=== PATIENT | female | born 1940 | race Caucasian/White ===

== ENCOUNTER 2018-09-24 18:51 | Inpatient (IN) | payer OTHER ==
--- NOTE | 2018-09-24 19:03 | PDOC ---
Rapid Medical Evaluation Chief Complaint: Redness To Affected Area Time Seen by Provider: 09/24/18 19:00 Medical Evaluation: Allergies Allergy/AdvReac Type Severity Reaction Status Date / Time No Known Allergies Allergy Verified 09/24/18 18:57 09/24/18 19:00 Pt presents to the ED for redness to the R lower leg. Sent by her PCP for IV abx. Exam: erythema to the R lower leg with streaking Orders: Labs, IV insert, x-ray Pt to proceed to the ED for further evaluation Discharge Disposition - Diagnosis Rash - Referrals Referrals: Maryam Watson MD [Primary Care Provider] - - Patient Instructions - Post Discharge Activity
--- NOTE | 2018-09-24 20:28 | PDOC ---
Attending Attestation - HPI HPI: 09/24/18 21:21 The patient is a 77 year old female with a past medical history of HTN and arthritis here today from her PCPs office for IV antibiotics. Patient failed outpatient treatment for cellulitis and was sent in by her PCP for IV antibiotics. Patient reports that her cellulitis started in her left leg but is now in her right leg. Patient denies headache, lightheadedness. Denies fever, chills. Denies chest pain, shortness of breath. Denies nausea, vomiting, diarrhea, abdominal pain. Allergies: NKA PCP: Maryam Watson - Physicial Exam PE: 09/24/18 21:33 Constitutional: Awake, alert, oriented. No acute distress. Head: Normocephalic. Atraumatic Eyes: PERRL. EOMI. Conjunctivae are not pale. ENT: Mucous membranes are moist and intact. Posterior pharynx without exudates or erythema. Uvula midline. Neck: Supple. Full ROM. No lymphadenopathy. Cardiovascular: Regular rate. Regular rhythm. S1, S2 regular. Distal pulses are 2+ and symmetric. Pulmonary/Chest: No evidence of respiratory distress. Clear to auscultation bilaterally No wheezing, rales or rhonchi. Abdominal: Soft and non-distended. There is no tenderness. No rebound, guarding or rigidity. No organomegaly. No palpable masses. Good bowel sounds. Back: No CVA tenderness. Musculoskeletal: + 2+pitting edema in right lower extremity. +right calf tense and palpable indurated area. +pain in back of right lower extremity. No cyanosis. No clubbing. Full range of motion in all extremities. No calf tenderness. No drainage, no fluctuance, no crepitus. Radial/pedal pulses are intact and 2+ bilaterally Skin: Skin is warm and dry. No petechiae. No purpura. Neurological: Alert and oriented to person, place, and time. Cranial nerves II -XII are grossly intact. Normal speech. Strength is grossly symmetric. No sensory deficits. Psychiatric: Good eye contact. Normal interaction, affect and behavior. <Fan Alicea - Last Filed: 09/24/18 21:33> - Resident Resident Name: Larry Zarco - ED Attending Attestation I have performed the following: I have examined & evaluated the patient, The case was reviewed & discussed with the resident, I agree w/resident's findings & plan, Exceptions are as noted - Medical Decision Making 09/24/18 20:28 I, Dr. Dorie Hurd DO, attest that this document has been prepared under my direction and personally reviewed by me in its entirety. I further attest, that it accurately reflects all work, treatment, procedures and medical decision -making performed by me. 09/24/18 21:29 a/p: 77yo female sent in by her PMD for eval of RLE cellulitis that has failed outpt abx -swelling, ttp, redness, warmth to the RLE -has been on keflex for 2 weeks TID -now with worsening pain to the RLE and swelling in the R leg -no cp/sob -hr 97, pulse ox 98%ra -will send labs, cultures, vancomycin -ekg, cxr for admission -duplex u/s to eval for clot -no allergies -will monitor and reassess 09/24/18 22:39 dvt study negative microblog sent to [facility] for cellulitis of the RLE that failed outpt therapy 09/24/18 22:59 case discussed with [facility] who accepts pt to service <Dorie Hurd - Last Filed: 09/24/18 23:00> *DC/Admit/Observation/Transfer <Fan Alicea - Last Filed: 09/24/18 21:33> - Discharge Dispostion Decision to Admit order: Yes <Dorie Hurd - Last Filed: 09/24/18 23:00> Diagnosis at time of Disposition: Rash, Cellulitis - Discharge Dispostion Condition at time of disposition: Fair - Referrals Referrals: Maryam Watson MD [Primary Care Provider] - - Patient Instructions - Post Discharge Activity Heart Score/ECG Review - ECG Intrepretation Comment:: 09/24/18 21:47 sinus at 93, nl axis, nl interval, no acute st/t wave findings <Dorie Hurd - Last Filed: 09/24/18 23:00> Attestations - Attestations 09/24/18 21:21 Documentation prepared by JAYLIN Alva, acting as medical review specialist for Dorie Hurd DO. <Fan Alicea - Last Filed: 09/24/18 21:33>
[2018-09-24 20:30] LABS: BASO % 0.1 % (0-2.0); EOS % 4.5 % (0-4.5); HEMATOCRIT 32.8 % (32.4-45.2); HEMOGLOBIN 10.9 GM/dL (10.7-15.3); LYMPH % 32.2 % (8-40); MCH 28.7 pg (25.7-33.7); MCHC 33.1 g/dl (32.0-36.0); MEAN CELL VOLUME 86.5 fl (80-96); MEAN PLT VOLUME 8.5 fl (7.5-11.1); MONO % 8.1 % (3.8-10.2); NEUT % 55.1 % (42.8-82.8); PLATELET COUNT 221 K/MM3 (134-434); RBC 3.79 M/mm3 (3.60-5.2); RDW 14.3 % (11.6-15.6); WHITE BLOOD COUNT 7.2 K/mm3 (4.0-10.0)
--- NOTE | 2018-09-24 20:37 | PDOC ---
History of Present Illness - General Chief Complaint: Redness To Affected Area Stated Complaint: REF BY DOCTOR Time Seen by Provider: 09/24/18 19:00 History Source: Patient Exam Limitations: Language Barrier - History of Present Illness Initial Comments: 77 yo F w a pmh of HTN and arthritis was sent into the hospital from her PCP - to receive IV Antibiotics for a cellulitis infection. She has been experiencing some skin problems for over 2 weeks now. She saw a doctor and was taking oral antibiotics as outpatient 3 times a day for 14 days ago which have not done anything for her and the red area got worse so she was sent to the hospital to receive IV abx. She took cefazolin as an outpatient but she failed outpatient treatment. Her right leg hurts where it is red. The pain has not been getting worse but it will not go away. Denies having any fevers, chills, chest pain, or SOB for the past few days. PCP: Maryam Santamaria PSH: 55 years ago cataract surgery Allergies: NKA, NKDA Social HX: Denies smoking, drinking, or other substances. Past History - Past Medical History Allergies/Adverse Reactions: Allergies Allergy/AdvReac Type Severity Reaction Status Date / Time No Known Allergies Allergy Verified 09/24/18 18:57 Home Medications: Ambulatory Orders Enalapril Maleate [Vasotec] 20 mg PO BID 09/25/18 Hydrochlorothiazide [Hctz -] 25 mg PO DAILY 09/25/18 COPD: No HTN: Yes Other medical history: arthritis - Suicide/Smoking/Psychosocial Hx Smoking History: Never smoked Review of Systems - Review of Systems Able to Perform ROS?: Yes Comments:: CONSTITUTIONAL: Absent: fever, no chills, no fatigue EYES: Absent: visual changes ENT: Absent: ear pain, no sore throat CARDIOVASCULAR: Absent: chest pain, no palpitations RESPIRATORY: Absent: cough, no SOB GI: Absent: abdominal pain, no nausea, no vomiting, no constipation, no diarrhea GENITOURINARY: Absent: dysuria, no frequency, no hematuria MUSKULOSKELETAL: Present R hip arthralgia - chronic and unchanged in past year Absent: back pain, no myalgia SKIN: Present: rash on right leg NEURO: Absent: headache *Physical Exam - Vital Signs Last Vital Signs Temp Pulse Resp BP Pulse Ox 98.9 F 114 H 18 135/72 96 03/27/19 18:57 09/24/18 18:57 09/24/18 18:57 09/24/18 18:57 09/24/18 18:57 - Physical Exam Comments: GENERAL: Well-appearing, well-nourished. No apparent distress. HEENT: Normocephalic, atraumatic. PERRL, EOM intact. CARDIOVASCULAR: Tachycardic rate. Normal S1, S2. Regular rhythm. PULMONARY: No evidence of respiratory distress. Lungs clear to auscultation bilaterally. No wheezing, rales or rhonchi. ABDOMEN: Soft, non-distended, non-tender. EXTREMITIES: right leg erythema and tenderness to palpation. Borders are not clearly defined. Normal ROM in all four extremities. No gross deformities. SKIN: Warm, dry. No rash NEUROLOGICAL: No focal neurological deficits. ED Treatment Course - LABORATORY CBC & Chemistry Diagram: 09/25/18 06:30 09/25/18 06:30 - ADDITIONAL ORDERS Additional order review: 09/24/18 20:11 RBC 3.79 MCV 86.5 MCHC 33.1 RDW 14.3 MPV 8.5 Neutrophils % 55.1 Lymphocytes % 32.2 Monocytes % 8.1 Eosinophils % 4.5 Basophils % 0.1 Medical Decision Making - Medical Decision Making 77 yo F w a pmh of HTN and arthritis was sent into the hospital from her PCP - to receive IV Antibiotics for a cellulitis infection. She has been experiencing some skin problems for over 2 weeks now. She saw a doctor and was taking oral antibiotics as outpatient 3 times a day for 14 days ago which have not done anything for her and the red area got worse so she was sent to the hospital to receive IV abx. She took cefazolin as an outpatient but she failed outpatient treatment. Her right leg hurts where it is red. The pain has not been getting worse but it will not go away. Denies having any fevers, chills, chest pain, or SOB for the past few days. VS: Tachy Ddx IBNLT: Cellulitis, erysipelas, DVT, PE Plan: Labs, Urine, CXR, EKG, Abx, Admit. *DC/Admit/Observation/Transfer Diagnosis at time of Disposition: Rash, Cellulitis - Discharge Dispostion Condition at time of disposition: Fair - Referrals - Patient Instructions - Post Discharge Activity
[2018-09-24 20:49] LABS: ALBUMIN 3.7 g/dl (3.4-5.0); ALK PHOS 93 U/L (45-117); ANION GAP 10 MMOL/L (8-16); BILIRUBIN,TOTAL 0.3 mg/dL (0.2-1); BLOOD UREA NITROGEN 35 mg/dL (7-18); CHLORIDE 103 mmol/L (98-107); CO2 25 mmol/L (21-32); GLUCOSE,RANDOM 109 mg/dL (74-106); POTASSIUM 3.8 mmol/L (3.5-5.1); SGOT/AST 12 U/L (15-37); SGPT/ALT 21 U/L (13-61); SODIUM 137 mmol/L (136-145); TOT PROT 7.6 g/dl (6.4-8.2)
[2018-09-24] MEDS ORDERED: SODIUM CHLORIDE 0.9% 500 ML INFUS.BAG IV ONE (21:16)
[2018-09-24] MEDS ORDERED: VANCOMYCIN 1,000 MG in DEXTROSE 5%-WATER - 250 ML IVPB ONE (21:16)
[2018-09-24] MEDS ORDERED: VANCOMYCIN 1 GRAM (PRE-DOCKED) 1,000 MG/250 ML BAG IVPB ONE (21:25)
--- NOTE | 2018-09-24 23:02 | PN ---
Teaching Attending Note Name of Resident: Terrence Moura ATTENDING PHYSICIAN STATEMENT I saw and evaluated the patient. I reviewed the resident's note and discussed the case with the resident. I agree with the resident's findings and plan as documented. SUBJECTIVE: Patient is a 77 year old woman with PMH of HTN and arthritis was sent into the hospital from her PCP - to receive IV Antibiotics for cellulitis of RLE. She has been experiencing some skin problems for over 2 weeks now. She saw a doctor and was taking Keflex 3 times a day for 14 days ago which have not done anything for her and the red area got worse. Her right leg hurts where it is red. The pain has not been getting worse but it will not go away. Has had chronic persistent RLE rash for months. Was evaluated by both a vein doctor and a dish room worker and has been using a steroid cream for months. Denies having any fevers, chills, chest pain, headache, dizziness, abdominal pain, change in bowel habit, vomiting, nausea, dysuria or SOB. OBJECTIVE: Alert Vital Signs Period Temp Pulse Resp BP Sys/Stearns Pulse Ox Last 24 Hr 98.9 F 114 18 135/72 96 HEENT: No Jaundice, eye redness or discharge, PERRLA, EOMI. Normocephalic, atraumatic. External ears are normal and hearing is grossly intact. No nasal discharge. Neck: Supple, nontender. No palpable adenopathy or thyromegaly. No JVD Chest: Good effort. Clear to auscultation and percussion. Heart: Regular. No S3, rub or murmur Abdomen: Not distended, soft, nontender and no HSM. No rebound or guarding. Normal bowel sounds. Ext: Peripheral pulses intact. RLE swelling associated with erythema and tenderness. Skin: Warm and dry. No petechiae, rash or ecchymosis. Neuro: Alert. Oriented x3. CN 2-12 grossly intact. Sensation grossly intact in all four extremities and DTR are symmetric. Psych: Appropriate mood and affect. Good insight. Abnormal Lab Results 09/24/18 20:11 BUN 35 H Random Glucose 109 H AST 12 L ASSESSMENT AND PLAN: 1. Right lower extremity Cellulitis - No acute abnormality on leg xray, CXR or doppler scan. Treat with IV vancomycin and consult ID. Ensure adequate hydration and check HbA1c. 2. Obesity Counseled on the risks associated with obesity. Will provide patient all the necessary assistance, counseling and positive reinforcement to facilitate weight loss. Consult vice president quality improvement. 3. Hypertension - Restart outpatient antihypertensive drugs and revise regimen to ensure smooth [id number] good BP control. Nonpharmacologic measures to control hypertension like weight loss, salt restriction and exercise discussed. 4. DVT prophylaxis - Lovenox 40 mg SQ q 24 hours. 5.Advance directives - Full code
--- NOTE | 2018-09-24 23:33 | HP ---
CHIEF COMPLAINT: Right leg pain and redness PCP: Dr. Maryam Gallo HISTORY OF PRESENT ILLNESS: Pt. is a 77 y.o. Chadian-only speaking F presents with cellulitis of the right lower extremity after failed outpatient management. Pt. completed Cefazolin TID for 14 days. Pt. states that her pain and erythema has not gotten worse but that it has not gotten better. Pt. states that last year she had a similar infection in the same location in the left leg and was treated successfully with Cefazolin. Pt. endorses that her left leg at that time was pruritic and that she scratched it and was scratching her right leg at the same time. She stated that she has been managing her right lower extremity for the last 8 months. She has history of venous insufficiency and was being evaluated by a "vein doctor" when her lower extremity infections first began. She was then referred to a [employer] who prescribed topical Metasone for 3 months before switching to topical Betametasone for 2 months. Pt. denies any fever, chills, nausea, vomiting, chest pain, shortness of breath , numbness/tingling in extremity, weakness of the lower extremities, or changes in bowel or urinary habits. ER course was notable for: (1)LE Duplex, EKG, Vancomycin (2)BCx. (3) Recent Travel: No PAST MEDICAL HISTORY: HTN, Arthritis PAST SURGICAL HISTORY: Cataract Surgery, Social History: Smoking: Denies Alcohol: Denies Drugs: Denies Family History: "Mother from pulmonary edema" Allergies No Known Allergies Allergy (Verified 09/24/18 18:57) HOME MEDICATIONS: Home Medications Medication Instructions Recorded Enalapril Maleate [Vasotec] 20 mg PO BID 09/25/18 Hydrochlorothiazide [Hctz -] 25 mg PO DAILY 09/25/18 REVIEW OF SYSTEMS As per HPI PHYSICAL EXAMINATION Vital Signs - 24 hr 09/24/18 18:57 Temperature 98.9 F Pulse Rate 114 H Respiratory 18 Rate Blood Pressure 135/72 O2 Sat by Pulse 96 Oximetry (%) GENERAL: Awake, alert, and fully oriented, in no acute distress. HEAD: Normal with no signs of trauma. EYES: Pupils equal, round and reactive to light, extraocular movements intact, sclera anicteric, conjunctiva clear. EARS, NOSE, THROAT: Ears normal, nares patent, oropharynx clear without exudates. Moist mucous membranes. NECK: Normal range of motion, supple without lymphadenopathy, JVD, or masses. LUNGS: Decreased respirations on left, No accessory muscle use. HEART: Regular rate and rhythm, normal S1 and S2 without murmur ABDOMEN: Soft, nontender, not distended, normoactive bowel sounds, no guarding, no rebound, no masses. MUSCULOSKELETAL: Normal range of motion at all joints. No bony deformities or tenderness. No CVA tenderness. UPPER EXTREMITIES: 2+ radial pulses, warm, well-perfused. No cyanosis. No clubbing. No peripheral edema. LOWER EXTREMITIES: 2+ dorsal pedal pulses, tenderness in the right lower leg at the soleus, erythema, warm, well-perfused. No calf tenderness. NEUROLOGICAL: Normal speech. PSYCHIATRIC: Cooperative. Good eye contact. Appropriate mood and affect. SKIN: Warm, dry, normal turgor, no rashes or lesions noted, normal capillary refill. Laboratory Results - last 24 hr 09/24/18 09/24/18 20:11 20:11 WBC 7.2 RBC 3.79 Hgb 10.9 Hct 32.8 MCV 86.5 MCH 28.7 MCHC 33.1 RDW 14.3 Plt Count 221 MPV 8.5 Absolute Neuts (auto) 4.0 Neutrophils % 55.1 Lymphocytes % 32.2 Monocytes % 8.1 Eosinophils % 4.5 Basophils % 0.1 Nucleated RBC % 0 Sodium 137 Potassium 3.8 Chloride 103 Carbon Dioxide 25 Anion Gap 10 BUN 35 H Creatinine 1.0 Creat Clearance w eGFR 54.05 Random Glucose 109 H Calcium 9.0 Total Bilirubin 0.3 AST 12 L ALT 21 Alkaline Phosphatase 93 Total Protein 7.6 Albumin 3.7 ASSESSMENT/PLAN: Pt. is a 77 y.o. Chadian-only speaking F w/ PMHx. HTN and Arthritis presents with cellulitis of the right lower extremity after failed outpatient management. #Cellulitis c/w Vancomycin consider adding Abx. to cover atypical organisms and Gram negatives adolescent counselor Pt. not to scratch leg ID Consult (Dr. Oviedo) appreciated Duplex negative for DVTs Tib/Fib. X-Ray negative for OM #HTN c/w HCTZ and Enalapril EKG: QTc: 474- NSR #FEN encourage PO intake monitor electrolytes, replete as needed Na restricted diet #DVT Ppx. Lovenox 40 SQ Visit type - Emergency Visit Emergency Visit: Yes ED Registration Date: 09/24/18 Care time: The patient presented to the Emergency Department on the above date and was hospitalized for further evaluation of their emergent condition. - New Patient This patient is new to me today: Yes Date on this admission: 09/24/18 - Critical Care Critical Care patient: No
[2018-09-25] MEDS ORDERED: VANCOMYCIN 1 GRAM (PRE-DOCKED) 1,000 MG/250 ML BAG IVPB ONE (00:42)
[2018-09-25 04:23] VITALS: BMI 28.8
[2018-09-25 08:00] LABS: BASO % 0.7 % (0-2.0); EOS % 4.2 % (0-4.5); HEMATOCRIT 34.9 % (32.4-45.2); HEMOGLOBIN 11.4 GM/dL (10.7-15.3); LYMPH % 31.2 % (8-40); MCH 27.9 pg (25.7-33.7); MCHC 32.6 g/dl (32.0-36.0); MEAN CELL VOLUME 85.7 fl (80-96); MEAN PLT VOLUME 8.6 fl (7.5-11.1); NEUT % 55.9 % (42.8-82.8); PLATELET COUNT 225 K/MM3 (134-434); RBC 4.07 M/mm3 (3.60-5.2); RDW 14.4 % (11.6-15.6); WHITE BLOOD COUNT 6.1 K/mm3 (4.0-10.0)
[2018-09-25 08:19] LABS: ANION GAP 8 MMOL/L (8-16); BLOOD UREA NITROGEN 28 mg/dL (7-18); CALCIUM 9.2 mg/dL (8.5-10.1); CHLORIDE 104 mmol/L (98-107); CO2 25 mmol/L (21-32); CREATININE 0.8 mg/dL (0.55-1.3); GLUCOSE,RANDOM 119 mg/dL (74-106); MAGNESIUM 2.2 mg/dL (1.8-2.4); PHOSPHOROUS 4.1 mg/dL (2.5-4.9); POTASSIUM 3.8 mmol/L (3.5-5.1); SODIUM 137 mmol/L (136-145)
[2018-09-25] MEDS ORDERED: HEPARIN NA (PORCINE) 5,000 UNITS/ML 1ML VIAL SQ SCH (10:00)
[2018-09-25] MEDS ORDERED: VANCOMYCIN 1 GM PREMIX - 1 GM/200 ML BAG IVPB SCH (10:00)
[2018-09-25] MEDS: HYDROCHLOROTHIAZIDE 25 MG TABLET (FP) PO SCH (10:02)
[2018-09-25] MEDS: ENALAPRIL MALEATE 10 MG TABLET (FP) PO SCH ×2 (10:03→22:08)
[2018-09-25] MEDS ORDERED: PT OWN MED DRAWER 7, Y5N ONE ×4 (10:04→22:01)
[2018-09-25] MEDS: ENOXAPARIN NA (PORCINE) 40 MG/0.4 ML DISP.SYRIN SQ SCH (10:07)
[2018-09-25] MEDS ORDERED: CEFAZOLIN 500 MG in DEXTROSE 5%-WATER - 50 ML IVPB SCH (11:45)
--- NOTE | 2018-09-25 11:50 | EKG ---
Test Reason : Blood Pressure : / mmHG Vent. Rate : 093 BPM Atrial Rate : 093 BPM P-R Int : 140 ms QRS Dur : 086 ms QT Int : 382 ms P-R-T Axes : 040 -01 031 degrees QTc Int : 474 ms POOR DATA QUALITY, INTERPRETATION MAY BE ADVERSELY AFFECTED NORMAL SINUS RHYTHM NORMAL ECG NO PREVIOUS ECGS AVAILABLE Confirmed by ANASTACIO FLOR, BUZZ ([id number]) on 09/25/2018 11:50:05 AM Referred By: Confirmed By:BUZZ CHAVES MD
--- NOTE | 2018-09-25 13:47 | PN ---
Physical Exam: SUBJECTIVE: Patient seen and examined OBJECTIVE: Vital Signs Period Temp Pulse Resp BP Sys/Stearns Pulse Ox Last 24 Hr 98.4 F-98.9 F 89-114 16-20 132-146/68-75 95-96 GENERAL: The patient is awake, alert, and fully oriented, in no acute distress. HEAD: Normal with no signs of trauma. EYES: PERRL, extraocular movements intact, sclera anicteric, conjunctiva clear. No ptosis. ENT: Ears normal, nares patent, oropharynx clear without exudates, moist mucous membranes. NECK: Trachea midline, full range of motion, supple. LUNGS: Breath sounds equal, clear to auscultation bilaterally, no wheezes, no crackles, no accessory muscle use. HEART: Regular rate and rhythm, S1, S2 without murmur, rub or gallop. ABDOMEN: Soft, nontender, nondistended, normoactive bowel sounds, no guarding, no rebound, no hepatosplenomegaly, no masses. EXTREMITIES: 2+ pulses, warm, well-perfused, no edema. NEUROLOGICAL: Cranial nerves II through XII grossly intact. Normal speech, gait not observed. PSYCH: Normal mood, normal affect. SKIN: Warm, dry, normal turgor, no rashes or lesions noted Laboratory Results - last 24 hr 09/24/18 09/24/18 09/25/18 20:11 20:11 06:30 WBC 7.2 6.1 RBC 3.79 4.07 Hgb 10.9 11.4 Hct 32.8 34.9 MCV 86.5 85.7 MCH 28.7 27.9 MCHC 33.1 32.6 RDW 14.3 14.4 Plt Count 221 225 MPV 8.5 8.6 Absolute Neuts (auto) 4.0 3.4 Neutrophils % 55.1 55.9 Lymphocytes % 32.2 31.2 Monocytes % 8.1 8.0 Eosinophils % 4.5 4.2 Basophils % 0.1 0.7 D Nucleated RBC % 0 0 Sodium 137 Potassium 3.8 Chloride 103 Carbon Dioxide 25 Anion Gap 10 BUN 35 H Creatinine 1.0 Creat Clearance w eGFR 54.05 Random Glucose 109 H Hemoglobin A1c % Calcium 9.0 Phosphorus Magnesium Total Bilirubin 0.3 AST 12 L ALT 21 Alkaline Phosphatase 93 Total Protein 7.6 Albumin 3.7 09/25/18 09/25/18 06:30 06:30 WBC RBC Hgb Hct MCV MCH MCHC RDW Plt Count MPV Absolute Neuts (auto) Neutrophils % Lymphocytes % Monocytes % Eosinophils % Basophils % Nucleated RBC % Sodium 137 Potassium 3.8 Chloride 104 Carbon Dioxide 25 Anion Gap 8 BUN 28 H Creatinine 0.8 Creat Clearance w eGFR 69.93 Random Glucose 119 H Hemoglobin A1c % 6.3 Calcium 9.2 Phosphorus 4.1 Magnesium 2.2 Total Bilirubin AST ALT Alkaline Phosphatase Total Protein Albumin Active Medications Generic Name Dose Route Start Last Admin Trade Name Freq PRN Reason Stop Dose Admin Enalapril Maleate 20 mg 09/25/18 10:00 09/25/18 10:03 Vasotec - PO Not Given BID JUNIOR Enoxaparin Sodium 40 mg 09/25/18 10:00 09/25/18 10:07 Lovenox - SQ 40 mg DAILY JUNIOR Administration Hydrochlorothiazide 25 mg 09/25/18 10:00 09/25/18 10:02 Hctz - PO Not Given DAILY JUNIOR Vancomycin HCl 1,000 mg in 250 mls @ 166.667 mls/hr 09/26/18 10:00 Vancomycin (Pre-Docked) IVPB BID JUNIOR Protocol Vancomycin HCl 1 gm in 200 mls @ 166.667 mls/hr 09/25/18 10:00 09/25/18 11:33 Vancomycin 1 Gm Premix - IVPB 09/25/18 22:00 166.667 mls/hr BID JUNIOR Administration Protocol Cefazolin Sodium 500 mg/ 50 mls @ 50 mls/30 min 09/25/18 11:45 Dextrose IVPB Q8H-IV JUNIOR ASSESSMENT/PLAN: Pt. is a 77 y.o. Lebanese-only speaking F w/ PMHx. HTN and Arthritis presents with cellulitis of the right lower extremity after failed outpatient management. # Possible Cellulitis? patient already received vancomycin in ED started patient on IV cefazolin ID consulted; recs appreciated arterial duplex pending to rule out any clots/insufficency though venous dopplers negative #HTN c/w enalapril 20 BID holding HCTZ for now #DM pateints HBA1c came back at 6.3 diabetic diet will need outpatient meds and follow up F/E/N not on fluids monitor electrolytes diabetic diet Problem List - Problems (1) Cellulitis Code(s): L03.90 - CELLULITIS, UNSPECIFIED (2) Rash Code(s): R21 - RASH AND OTHER NONSPECIFIC SKIN ERUPTION Visit type - Emergency Visit Emergency Visit: Yes ED Registration Date: 09/24/18 Care time: The patient presented to the Emergency Department on the above date and was hospitalized for further evaluation of their emergent condition. - New Patient This patient is new to me today: Yes Date on this admission: 09/25/18 - Critical Care Critical Care patient: No
--- NOTE | 2018-09-25 15:03 | PN ---
Teaching Attending Note Name of Resident: Kalli Gonzalez ATTENDING PHYSICIAN STATEMENT I saw and evaluated the patient. I reviewed the resident's note and discussed the case with the resident. I agree with the resident's findings and plan as documented. SUBJECTIVE: Patient feels better, stated that she was treated on oral antibiotics but did not help. OBJECTIVE: Vital Signs Temperature 98.0 F 09/25/18 10:00 Pulse Rate 94 H 09/25/18 10:00 Respiratory Rate 20 09/25/18 10:00 Blood Pressure 134/85 09/25/18 10:00 O2 Sat by Pulse Oximetry (%) 95 09/25/18 03:15 EXAM: GENERAL: The patient is awake, alert, and fully oriented, in no acute distress. HEAD: Normal with no signs of trauma. EYES: PERRL, extraocular movements intact, sclera anicteric, conjunctiva clear. positive for pterygium ENT: Ears normal, oropharynx clear without exudates, moist mucous membranes. NECK: Trachea midline, full range of motion, supple. LUNGS: Breath sounds equal, clear to auscultation bilaterally, no wheezes, no crackles, no accessory muscle use. HEART: Regular rate and rhythm, S1, S2 without murmur, rub or gallop. ABDOMEN: Soft, nontender, nondistended, normoactive bowel sounds, no guarding, no rebound, no hepatosplenomegaly, no masses. EXTREMITIES: 2+ pulses, warm, well-perfused, RLE warm to touch with feeling of cord NEUROLOGICAL: Cranial nerves II through XII grossly intact. Normal speech, gait not observed. PSYCH: Normal mood, normal affect. SKIN: Warm, dry, normal turgor, no rashes or lesions noted WBC 6.1 K/mm3 (4.0-10.0) 09/25/18 06:30 RBC 4.07 M/mm3 (3.60-5.2) 09/25/18 06:30 Hgb 11.4 GM/dL (10.7-15.3) 09/25/18 06:30 Hct 34.9 % (32.4-45.2) 09/25/18 06:30 MCV 85.7 fl (80-96) 09/25/18 06:30 MCHC 32.6 g/dl (32.0-36.0) 09/25/18 06:30 RDW 14.4 % (11.6-15.6) 09/25/18 06:30 Plt Count 225 K/MM3 (134-434) 09/25/18 06:30 MPV 8.6 fl (7.5-11.1) 09/25/18 06:30 CMP Sodium 137 mmol/L (136-145) 09/25/18 06:30 Potassium 3.8 mmol/L (3.5-5.1) 09/25/18 06:30 Chloride 104 mmol/L (98-107) 09/25/18 06:30 Carbon Dioxide 25 mmol/L (21-32) 09/25/18 06:30 Anion Gap 8 MMOL/L (8-16) 09/25/18 06:30 BUN 28 mg/dL (7-18) H 09/25/18 06:30 Creatinine 0.8 mg/dL (0.55-1.3) 09/25/18 06:30 Creat Clearance w eGFR 69.93 (>60) 09/25/18 06:30 Random Glucose 119 mg/dL (74-106) H 09/25/18 06:30 Calcium 9.2 mg/dL (8.5-10.1) 09/25/18 06:30 Total Bilirubin 0.3 mg/dL (0.2-1) 09/24/18 20:11 AST 12 U/L (15-37) L 09/24/18 20:11 ALT 21 U/L (13-61) 09/24/18 20:11 Alkaline Phosphatase 93 U/L (45-117) 09/24/18 20:11 Total Protein 7.6 g/dl (6.4-8.2) 09/24/18 20:11 Albumin 3.7 g/dl (3.4-5.0) 09/24/18 20:11 Current Medications Generic Name Dose Route Start Last Admin Trade Name Freq PRN Reason Stop Dose Admin Enalapril Maleate 20 mg 09/25/18 10:00 09/25/18 10:03 Vasotec - PO Not Given BID JUNIOR Enoxaparin Sodium 40 mg 09/25/18 10:00 09/25/18 10:07 Lovenox - SQ 40 mg DAILY JUNIOR Administration Hydrochlorothiazide 25 mg 09/25/18 10:00 09/25/18 10:02 Hctz - PO Not Given DAILY JUNIOR Vancomycin HCl 1,000 mg in 250 mls @ 166.667 mls/hr 09/26/18 10:00 Vancomycin (Pre-Docked) IVPB BID JUNIOR Protocol Vancomycin HCl 1 gm in 200 mls @ 166.667 mls/hr 09/25/18 10:00 09/25/18 11:33 Vancomycin 1 Gm Premix - IVPB 09/25/18 22:00 166.667 mls/hr BID JUNIOR Administration Protocol Cefazolin Sodium 500 mg/ 50 mls @ 50 mls/30 min 09/25/18 11:45 09/25/18 14:18 Dextrose IVPB 50 mls/30 min Q8H-IV JUNIOR Administration Home Medications Medication Instructions Recorded Enalapril Maleate [Vasotec] 20 mg PO BID 09/25/18 Hydrochlorothiazide [Hctz -] 25 mg PO DAILY 09/25/18 EKG: QTc: 474- NSR Duplex negative for DVTs X-Ray of Tib/Fib. negative ASSESSMENT AND PLAN: Patient is a 77 y.o. Tongan speaking Female with PMHx of HTN and OA, hx of cellulitis of LLE was treated on oral ABx as an outpatient, presents with having cellulitis of the right lower extremity , was on oral antibiotic at home but failed outpatient management. #Acute RLE Cellulitis on IV cefazolin s/p IV vancomycin, and will get an arterial duplex of the LE r/o insufficiency since c/o having claudication pof LE , will get ID to evaluate the patient for further ABx management. #HTN : controlled , continue HCTZ and Enalapril #DVT Ppx.:Lovenox 40 SQ
--- NOTE | 2018-09-25 15:57 | PN ---
Progress Note (short form) - Note Progress Note: ID consult dictated imp/reccd [employer] rn transfer services used 77 yo female admitted from home with erythema and induration of the RLE she reports a three month history of induration and pain of the right inner leg originally had a small area on the LLE that resolved with antiibotics this area has continued to be painful and red no fevers no weight loss no surgery to the leg +superficial varicosities no animal scratches to the area cellulitis area of painful induration RLE- ?superficial phlebitis, ?panniculiits-early lipodermatosclerosis?? switch to clindamycin to cover MRSA and strep ultrasound the indurated area esr/crp consider vascular opinion Problem List - Problems (1) Cellulitis Code(s): L03.90 - CELLULITIS, UNSPECIFIED (2) Superficial phlebitis Code(s): I80.9 - PHLEBITIS AND THROMBOPHLEBITIS OF UNSPECIFIED SITE
--- NOTE | 2018-09-25 16:07 | PN ---
Progress Note (short form) - Note Progress Note: ID consult dictated imp/reccd 77 yo fe
[2018-09-25] MEDS: CLINDAMYCIN 600MG PREMIX IVPB 600 MG/50 ML BAG IVPB SCH (17:29)
[2018-09-25] MEDS: LACTOBACILLUS ACIDOPHILUS 1 TABLET PO SCH (17:29)
--- NOTE | 2018-09-25 18:14 | CONS ---
INFECTIOUS DISEASE CONSULTATION DATE OF CONSULTATION: DATE OF DICTATION: 09/25/2018 History was obtained by an digital sales manager. HISTORY: This is a 77-year-old woman who was recently in the [place]. She has been living for the last 2 years with her family here in [place]. She is sent to the hospital by her PMD for cellulitis of the right lower extremity that has not been resolving. She reports she has had intermittent erythema and induration of exactly the same place on the right lower extremity for at least the last 3 months. She has taken oral antibiotics several times. She said twice most recently she took Keflex for 14 days which was not really improved. She has been on topical steroids. In the past she has been evaluated by Vascular and Dermatology. She has some fevers and chills. She notes that originally she had a small area of induration and erythema of the left lower leg as well that resolved. She has no fevers, chills , nausea, vomiting, diarrhea, dysuria. She takes no steroids. She has no history of diabetes. There is no history of any recent travel. She has been staying in this country for the last 2 years. PAST MEDICAL HISTORY: She has a history of hypertension and arthritis. SURGICAL HISTORY: Notable for cataracts and C section. FAMILY HISTORY: Unremarkable. SOCIAL HISTORY: No history of cigarette, alcohol or substance use. They do have pet cats which scratch on her arms but not on her legs. ALLERGIES: She has no known drug allergies. MEDICATIONS: At home include enalapril and hydrochlorothiazide. REVIEW OF SYSTEMS: She has had no weight loss, no fevers or chills. She otherwise feels well. PHYSICAL EXAM: Vital Signs: Temperature is 98, pulse 99, blood pressure 113/71. Respiratory rate is 18. She weighs 62 kg. She is saturating 95% on room air. HEENT: She is normocephalic. Eyes are anicteric. Neck: Supple. Lungs: Clear to auscultation. Heart: Regular rate and rhythm. Abdomen: Soft, nontender. Extremities: Notable for multiple superficial varicosities of the right leg, especially below the knee. She has an area on the inner aspect of her leg above the ankle of induration that is very painful and mildly erythematous and warm. She reports this has been chronically the point of contention. LABORATORY: Notable for a white count of 6.1, hemoglobin 11.4, platelets of 225. BUN 28, creatinine 0.8. LFTs are normal. Blood cultures are pending. X-ray of the leg was unremarkable. Duplex showed no evidence of DVT. IN SUMMARY: This is a woman with an area of painful induration of the right lower extremity in the setting of superficial thrombophlebitis. This could be superficial phlebitis or a form of form of panniculitis with early lipodermatosclerosis. I would switch her to clindamycin to cover MRSA and streptococcus. We can stop vancomycin and cefazolin. Would ultrasound the indurated area. Check a sedimentation rate and CRP. Would consider a vascular opinion. Further recommendations to follow. If it does not resolve, it would be reasonable to secure Dermatology opinion again. LAURIE TOBAR M.D. [id number] MTDD
[2018-09-25] MEDS: HYDROCORTISONE 1% TOPICAL CREAM 30 GM TUBE TP SCH (22:08)
[2018-09-26] MEDS: CLINDAMYCIN 600MG PREMIX IVPB 600 MG/50 ML BAG IVPB SCH ×2 (01:22→09:45)
[2018-09-26 07:57] LABS: HEMATOCRIT 33.7 % (32.4-45.2); HEMOGLOBIN 11.2 GM/dL (10.7-15.3); MCH 28.3 pg (25.7-33.7); MCHC 33.1 g/dl (32.0-36.0); MEAN CELL VOLUME 85.3 fl (80-96); MEAN PLT VOLUME 8.7 fl (7.5-11.1); PLATELET COUNT 230 K/MM3 (134-434); RBC 3.95 M/mm3 (3.60-5.2); RDW 14.4 % (11.6-15.6); WHITE BLOOD COUNT 6.1 K/mm3 (4.0-10.0)
--- NOTE | 2018-09-26 08:29 | PN ---
Physical Exam: SUBJECTIVE: Patient seen and examined OBJECTIVE: Vital Signs Period Temp Pulse Resp BP Sys/Stearns Pulse Ox Last 24 Hr 98.0 F-98.2 F 86-99 18-20 109-134/57-85 98-98 GENERAL: The patient is awake, alert, and fully oriented, in no acute distress. HEAD: Normal with no signs of trauma. EYES: PERRL, extraocular movements intact, sclera anicteric, conjunctiva clear. No ptosis. ENT: Ears normal, nares patent, oropharynx clear without exudates, moist mucous membranes. NECK: Trachea midline, full range of motion, supple. LUNGS: Breath sounds equal, clear to auscultation bilaterally, no wheezes, no crackles, no accessory muscle use. HEART: Regular rate and rhythm, S1, S2 without murmur, rub or gallop. ABDOMEN: Soft, nontender, nondistended, normoactive bowel sounds, no guarding, no rebound, no hepatosplenomegaly, no masses. EXTREMITIES: 2+ pulses, warm, well-perfused, no edema. NEUROLOGICAL: Cranial nerves II through XII grossly intact. Normal speech, gait not observed. PSYCH: Normal mood, normal affect. SKIN: Warm, dry, normal turgor, no rashes or lesions noted Laboratory Results - last 24 hr 09/25/18 09/26/18 06:30 06:30 WBC 6.1 RBC 3.95 Hgb 11.2 Hct 33.7 MCV 85.3 MCH 28.3 MCHC 33.1 RDW 14.4 Plt Count 230 MPV 8.7 Hemoglobin A1c % 6.3 Active Medications Generic Name Dose Route Start Last Admin Trade Name Riazq PRN Reason Stop Dose Admin Enalapril Maleate 20 mg 09/25/18 10:00 09/25/18 22:08 Vasotec - PO 20 mg BID JNUIOR Administration Enoxaparin Sodium 40 mg 09/25/18 10:00 09/25/18 10:07 Lovenox - SQ 40 mg DAILY JUNIOR Administration Hydrochlorothiazide 25 mg 09/25/18 10:09/25/18 10:02 Hctz - PO Not Given DAILY JUNIOR Hydrocortisone 1 applic 09/25/18 22:00 09/25/18 22:08 Hytone 1% Cream - TP 1 applic BID JUNIOR Administration Clindamycin Phosphate 600 mg in 50 mls @ 100 mls/hr 09/25/18 18:00 09/26/18 01:22 Cleocin 600 Mg Premix Ivpb - IVPB 100 mls/hr Q8H-IV JUNIOR Administration Protocol Lactobacillus Acidophilus 1 tab 09/25/18 16:00 09/25/18 17:29 Bacid - PO 1 tab DAILY JUNIOR Administration ASSESSMENT/PLAN: Pt. is a 77 y.o. Uruguayan-only speaking F w/ PMHx. HTN and Arthritis presents with cellulitis of the right lower extremity after failed outpatient management. # Possible Cellulitis? patient switched to clindamycin ID consulted; recs appreciated arterial duplex shows diminished flow B/L and U/S shows soft tissue edema but no abscess possible vascular consult #HTN c/w enalapril 20 BID holding HCTZ for now #DM pateints HBA1c came back at 6.3 diabetic diet will need outpatient meds and follow up F/E/N not on fluids monitor electrolytes diabetic diet Problem List - Problems (1) Cellulitis Code(s): L03.90 - CELLULITIS, UNSPECIFIED (2) Rash Code(s): R21 - RASH AND OTHER NONSPECIFIC SKIN ERUPTION
[2018-09-26 08:40] LABS: ANION GAP 7 MMOL/L (8-16); BLOOD UREA NITROGEN 39 mg/dL (7-18); CALCIUM 9.2 mg/dL (8.5-10.1); CHLORIDE 102 mmol/L (98-107); CO2 25 mmol/L (21-32); CREATININE 0.9 mg/dL (0.55-1.3); GLUCOSE,RANDOM 109 mg/dL (74-106); MAGNESIUM 2.4 mg/dL (1.8-2.4); SODIUM 134 mmol/L (136-145)
[2018-09-26] MEDS ORDERED: PT OWN MED DRAWER 7, Y5N ONE (08:58)
[2018-09-26] MEDS: ENALAPRIL MALEATE 10 MG TABLET (FP) PO SCH (09:46)
[2018-09-26] MEDS: ENOXAPARIN NA (PORCINE) 40 MG/0.4 ML DISP.SYRIN SQ SCH (09:46)
[2018-09-26] MEDS: LACTOBACILLUS ACIDOPHILUS 1 TABLET PO SCH (09:46)
[2018-09-26] MEDS: HYDROCHLOROTHIAZIDE 25 MG TABLET (FP) PO SCH (09:46)
[2018-09-26] MEDS: HYDROCORTISONE 1% TOPICAL CREAM 30 GM TUBE TP SCH (09:50)
[2018-09-26] MEDS ORDERED: VANCOMYCIN 1 GRAM (PRE-DOCKED) 1,000 MG/250 ML BAG IVPB SCH (10:00)
[2018-09-26] MEDS ORDERED: ASPIRIN 325 MG TABLET PO SCH (10:45)
[2018-09-26] MEDS ORDERED: ASPIRIN COATED 81 MG TABLET.EC PO SCH (11:15)
[2018-09-26 11:35] VITALS: TEMP 98.2
--- NOTE | 2018-09-26 14:00 | DS ---
Physical Exam: SUBJECTIVE: Patient seen and examined at bedside- no acute events overnight patient states that she is feeling better and that her leg pain is beter; she denies any CP/SOB/N/V fevers or chills OBJECTIVE: Vital Signs Period Temp Pulse Resp BP Sys/Stearns Pulse Ox Last 24 Hr 98.0 F-98.2 F 86-99 18-20 109-126/57-73 98-98 PHYSICAL EXAM GENERAL: The patient is awake, alert, and fully oriented, in no acute distress. EYES: PEERLA: EOMI; no scleral icterus NECK: no JVD; no lymphadenopathy. LUNGS: CTA B//L; no rales, rhonchi or wheezing HEART: Regular rate and rhythm, S1, S2 without murmur, rub or gallop. ABDOMEN: Soft, nontender, nondistended, normoactive bowel sounds, no guarding, no rebound, no hepatosplenomegaly, no masses. EXTREMITIES: 2+ pulses, warm, well-perfused, no edema. right extremity: medial ji area of redness slightly warm to touch PSYCH: Normal mood, normal affect. SKIN: Warm, dry, normal turgor, no rashes or lesions noted. LABS Laboratory Results - last 24 hr 09/26/18 09/26/18 09/26/18 06:30 06:30 06:30 WBC 6.1 RBC 3.95 Hgb 11.2 Hct 33.7 MCV 85.3 MCH 28.3 MCHC 33.1 RDW 14.4 Plt Count 230 MPV 8.7 ESR 46 H Sodium 134 L Potassium 4.0 Chloride 102 Carbon Dioxide 25 Anion Gap 7 L BUN 39 H Creatinine 0.9 Creat Clearance w eGFR 61.04 Random Glucose 109 H Calcium 9.2 Phosphorus 5.0 H Magnesium 2.4 C-Reactive Protein 1.2 H HOSPITAL COURSE: Date of Admission:09/24/18 Pt. is a 77 y.o. British-only speaking F presents with cellulitis of the right lower extremity after failed outpatient management. Pt. completed Cefazolin TID for 14 days. Pt. states that her pain and erythema has not gotten worse but that it has not gotten better. Pt. states that last year she had a similar infection in the same location in the left leg and was treated successfully with Cefazolin. Pt. endorses that her left leg at that time was pruritic and that she scratched it and was scratching her right leg at the same time. She stated that she has been managing her right lower extremity for the last 8 months. She has history of venous insufficiency and was being evaluated by a "vein doctor" when her lower extremity infections first began. She was then referred to a Clinical Material Handler who prescribed topical Metasone for 3 months before switching to topical Betametasone for 2 months. her vitals and labs were stable upon arrival to the hospital; a venous duplx was done which did not show any evidence of DVT- she was given vancomycin in the ED> upon arrivign to the floor she was switched to clindamycin and also given hydrocortisone cream- arterial duplex was done which showed diminshed flow bilterally and an ultrasound was done which showed no abscess but showed soft tissue edema she was d/c home with clindamycin 300 TID for 7 days in addition she was started on aspirin and lipitor. she was given referral to the vascular surgeon as well Date of Discharge: 09/26/18 Minutes to complete discharge: 39 Discharge Summary Reason For Visit: CELLULITIS Condition: Stable - Instructions Diet, Activity, Other Instructions: You came to the hospital with complaints of a rash and infection of your right leg. We did a duplex study of the arteries on your legs and it shows some arterial narrowing. We also had an infectious disease doctor come to see you and you were started with intravenous antibiotics in addition to 2 other medications. Please resume all of your home medications in addition: Please take the antibiotic Clindamycin 300mg three times a day for 7 days in addition please take the medication Bacid to help with the lining of your intestines while taking antibiotics Please take Aspirin 81 enteric coated daily Please take Lipitor 20mg at night Please follow up with Dr. Watson, within one week We are referring you to a vein doctor, Dr. Edmondson, for you to follow up with within one week We measured your sugar level (HbA1c) and it came back at 6.3, which is pre- diabetic stage. Please follow a low carb/low sugar, low fat diet and have your HbA1c rechecked in 3 months *if you begin to experience any chest pains, shortness of breath, nausea/ vomiting, fevers please return to the emergency room immediately Referrals: Maryam Watson [Other] - 1 Week Fernando Edmondson MD [Non Staff, Medical] - 1 Week Disposition: HOME - Home Medications Comprehensive Discharge Medication List: Ambulatory Orders Enalapril Maleate [Vasotec] 20 mg PO BID 09/25/18 Hydrochlorothiazide [Hctz -] 25 mg PO DAILY 09/25/18 Aspirin Coated [Ecotrin -] 81 mg PO DAILY #30 tablet.ec 09/26/18 Atorvastatin Ca [Lipitor] 20 mg PO HS #30 tablet 09/26/18 Clindamycin [Cleocin -] 300 mg PO TID #21 capsule 09/26/18 Hydrocortisone 1% Cream [Hytone 1% Cream -] 1 applic TP BID #1 tube 09/26/18 Lactobacillus Acidophilus [Bacid -] 1 tab PO DAILY #21 tab 09/26/18 Problem List - Problems (1) Cellulitis Code(s): L03.90 - CELLULITIS, UNSPECIFIED (2) Rash Code(s): R21 - RASH AND OTHER NONSPECIFIC SKIN ERUPTION This patient is new to me today: No Emergency Visit: Yes ED Registration Date: 09/24/18 Care time: The patient presented to the Emergency Department on the above date and was hospitalized for further evaluation of their emergent condition. Critical Care patient: No - Discharge Referral Referred to [facility] No
[2018-09-26 15:24] VITALS: BP 112/59; PULSE 97
[2018-09-26] MEDS ORDERED: ATORVASTATIN CA 20 MG TABLET (FP) PO SCH (22:00)
== END 2018-09-26 18:51 | disposition home or self-care (01) | DRG 383 ==
LOC: JER 18:51 → JERBED 22:46 → J8W 09-25 03:49
PROVIDERS: ADMIT Internal Medicine; ATTEND Internal Medicine
DX: L03.115 Cellulitis of right lower limb (principal); I87.2 Venous insufficiency (chronic) (peripheral); I10 Essential (primary) hypertension; R21 Rash and other nonspecific skin eruption; E66.9 Obesity, unspecified; Z68.28 Body mass index [BMI] 28.0-28.9, adult
CPT/HCPCS: 36415; 71045-TC-FY; 73590-TC-RT-FY; 76882-TC-RT-FY; 80048; 80053; 83036; 83735; 84100; 85025; 85027; 85651; 86140; 87040; 93005; 93010; 93925-TC; 93970-TC; 99284-25

== ENCOUNTER 2021-12-07 14:19 | Emergency (ER) | payer OTHER ==
[2021-12-07 14:46] VITALS: BMI 29.2
[2021-12-07] MEDS ORDERED: SODIUM CHLORIDE 0.9% 1000 ML INFUS.BAG IV ONE (15:14)
[2021-12-07 15:37] VITALS: BP 114/75; PULSE 91; TEMP 97.3
[2021-12-07 16:33] LABS: ALBUMIN 3.4 g/dl (3.4-5.0); CALCIUM 8.9 mg/dL (8.5-10.1)
[2021-12-07 16:35] LABS: BASO % 0.9 % (0-2.0); EOS % 3.6 % (0-4.5); HEMATOCRIT 34.6 % (32.4-45.2); HEMOGLOBIN 11.3 GM/dL (10.7-15.3); LYMPH % 34.2 % (8-40); MCH 28.8 pg (25.7-33.7); MCHC 32.6 g/dl (32.0-36.0); MEAN CELL VOLUME 88.3 fl (80-96); MEAN PLT VOLUME 9.2 fl (7.5-11.1); MONO % 8.6 % (3.8-10.2); NEUT % 52.7 % (42.8-82.8); PLATELET COUNT 215 10^3/uL (134-434); RBC 3.92 M/mm3 (3.60-5.2); RDW 14.1 % (11.6-15.6); WHITE BLOOD COUNT 5.8 K/mm3 (4.0-10.0)
[2021-12-07 16:37] LABS: CREATININE 1.1 mg/dL (0.55-1.3)
[2021-12-07 16:38] LABS: BILIRUBIN,TOTAL 0.3 mg/dL (0.2-1); TOT PROT 7.2 g/dl (6.4-8.2)
[2021-12-07 18:22] LABS: PH,URINE 5.5 (5.0-8.0); URINE APPEARANCE CLEAR; URINE BILIRUBIN NEGATIVE (NEGATIVE); URINE COLOR YELLOW; URINE GLUCOSE (UA) NEGATIVE (NEGATIVE); URINE KETONE NEGATIVE (NEGATIVE); URINE LEUK ESTERASE NEGATIVE (NEGATIVE); URINE NITRITE NEGATIVE (NEGATIVE); URINE PROTEIN NEGATIVE (NEGATIVE); URINE UROBILINOGEN 0.2 mg/dL (0.2-1.0)
== END 2021-12-07 18:48 | disposition home or self-care (01) ==
LOC: JER 14:19
DX: R19.7 Diarrhea, unspecified (principal)
CPT/HCPCS: 36415; 80053; 81003; 83690; 85025; 87045; 87046; 87086; 87186; 87205; 87324; 87449; 99284-25